=== PATIENT | male | born 1935 | race Caucasian/White ===

== ENCOUNTER 2016-07-03 15:21 | Inpatient (IN) ==
--- NOTE | 2016-07-03 16:05 | Emergency Department Note ---
Disposition Clinical Impression: Ischemia of right lower extremity, Arterial occlusion, lower extremity, Diabetes, Frail elderly, Hypertension, Peripheral vascular disease Disposition: Admitted As Inpatient Referrals: NO,PCP [Non-Partnered Physician] - Forms: ED Satisfaction Letter General Adult HPI - General Chief complaint: ED Extremity Problem,Nontraumatic Stated complaint: right leg blockage Time Seen by Provider: 07/03/16 16:05 Source: patient, family Limitations: physical limitation - History of Present Illness HPI Narrative: 80-year-old male with a history of peripheral vascular disease status post femoral bypass reports the emergency department complaining of right foot pain, he reports he gets right foot and leg pain when walking. There is no history of trauma. The family reports the patient has no pulse in his right foot or leg. The patient has contacted Dr. Cisse's office, they have recommended he come to the ED. The patient denies any leg swelling or redness. There is no history of coughing up blood or chest pain. He denies any shortness of breath. There is no history of fever. The patient takes no blood thinners at this time. There is no history of abdominal pain vomiting diarrhea or syncope. No acute back pain. No confusion or trouble moving the arms or legs independently. The arms or legs and not been cold blue or numb. The patient denies any other complaints or concerns. Onset (ago): hour(s) Pain Scale: 10 - Related Data Home Medications Medication Instructions Recorded Confirmed Enalapril Maleate [Vasotec] 20 mg PO DAILY 07/03/16 07/03/16 Metformin [Glucophage] 500 mg PO BIDWM 07/03/16 07/03/16 Metoprolol [Lopressor] 50 mg PO DAILY 07/03/16 07/03/16 NIFEdipine [Nifedical Xl] 60 mg PO BID 07/03/16 07/03/16 Simvastatin [Zocor] 20 mg PO HS 07/03/16 07/03/16 Allergies Allergy/AdvReac Type Severity Reaction Status Date / Time No Known Allergies Allergy Verified 07/03/16 15:27 All systems ED: reviewed and negative except as stated. Past Medical History - Past Medical History Medical history: Reports: diabetes, hypertension, peripheral artery disease Psychiatric history: Reports: no psych history - Social History Smoking Status: Never smoker Smokeless Tobacco Status: No Alcohol use: Reports: none Drug use: Reports: none Physical Exam - General Limitations: physical limitation General appearance: alert, in no apparent distress - Head Head exam: atraumatic, normocephalic, normal inspection - Eye Eye exam: Present: normal appearance, PERRL, EOMI - ENT ENT exam: normal exam, normal oropharynx, mucous membranes moist - Neck Neck exam: Present: normal inspection, full ROM, trachea midline - Chest Chest inspection: Present: symmetric chest wall rise. Absent: tenderness - Respiratory Respiratory exam: Present: normal lung sounds bilaterally. Absent: respiratory distress - Cardiovascular Cardiovascular exam: Present: regular rate, normal rhythm, normal heart sounds - Abdominal Exam Abdominal exam: Present: soft, Non-Tender. Absent: tenderness, distention, guarding, rebound, rigidity - Extremities Exam Extremities exam: Present: full ROM, tenderness, other (The upper extremities and the left lower extremity show bounding pulses which are easily palpable. There is 3 extremities are warm and well-perfused with no evidence of cyanosis edema or trauma. The right lower extremity appears to be somewhat pale, there are no palpable dorsalis pedis or posterior tibialis pulses noted. His trauma or calf or leg swelling.). Absent: normal inspection, normal capillary refill, pedal edema, joint swelling, calf tenderness - Expanded Lower Extremity Exam Hip/Pelvis exam: Present: full ROM. Absent: tenderness Upper leg exam: Present: full ROM. Absent: tenderness Knee exam: Present: full ROM. Absent: tenderness Lower leg exam: Present: full ROM. Absent: tenderness Ankle exam: Present: full ROM. Absent: tenderness Foot/toe exam: Present: full ROM. Absent: tenderness Neurovascular/Tendon exam: Present: pulse deficit. Absent: motor deficit, sensory deficit, tendon deficit - Back Exam Back exam: Present: normal inspection, full ROM. Absent: tenderness, CVA tenderness (R), CVA tenderness (L), vertebral tenderness - Neurological Exam Neurological exam: Present: alert, oriented X3, CN II-XII intact. Absent: motor sensory deficit - Psychiatric Psychiatric exam: Present: normal affect, normal mood - Skin Skin exam: Present: warm, dry, intact, normal color, pallor (Right foot and leg) . Absent: rash, cyanosis, diaphoresis Course Vital Signs Temperature 98.4 F 07/03/16 15:27 Pulse Rate 95 07/03/16 15:27 Respiratory Rate 15 07/03/16 15:27 Blood Pressure 190/77 07/03/16 15:27 O2 Sat by Pulse Oximetry 95 07/03/16 15:27 Temperature 98.4 F 07/03/16 15:27 Pulse Rate 68 07/03/16 17:30 Respiratory Rate 16 07/03/16 17:30 Blood Pressure 161/86 07/03/16 17:30 O2 Sat by Pulse Oximetry 97 07/03/16 17:30 Oxygen Delivery Oxygen Delivery Room Air Medical Decision Making - MDM Narrative Medical decision making narrative: The patient's MARGY was 0 on the right lower extremity, he remained pulseless, arterial studies reveal an occluded femoral-femoral graft. I consulted with the vascular surgeon Dr. Palacios who is coming to evaluate the patient. Heparin drip was initiated. CTA right lower extremity with runoff was ordered. - Lab Data Lab results reviewed: Yes I reviewed the patient's lab results. Result diagrams: 07/03/16 17:00 07/03/16 17:00 Lab Results 07/03/16 07/03/16 07/03/16 Range/Units 17:00 17:00 17:00 WBC 8.9 (4.3-11.1) K/mcL RBC 4.72 (4.19-5.50) M/mcL Hgb 14.9 (12.9-16.9) g/dL Hct 43.0 (37.5-50.1) % MCV 91.1 (83.0-100.0) fL MCH 31.6 (28.0-33.3) pg MCHC 34.7 (31.6-35.5) g/dL RDW 12.4 (11.5-14.5) % Plt Count 174 (140-400) K/mcL MPV 10.3 (9.4-12.4) fL Immature Gran % 0.2 (0-4) % Seg Neutrophils % 69.2 % Lymphocytes % 20.2 % Monocytes % 9.2 % Eosinophils % 0.6 % Basophils % 0.6 % Neutrophils # 6.2 (1.6-8.9) K/mcL Lymphocytes # 1.8 (0.6-4.6) K/mcL Monocytes # 0.8 (0.0-1.3) K/mcL Eosinophils # 0.1 (0.0-0.6) K/mcL Basophils # 0.1 (0.0-0.2) K/mcL PT (9.4-12.1) Seconds INR APTT (26.0-36.0) Seconds Sodium 140 (136-145) mEq/L Potassium 3.8 (3.5-4.5) mEq/L Chloride 110 H (98-109) mEq/L Carbon Dioxide 19 (19-29) mEq/L BUN 11 (8-26) mg/dL Creatinine 0.80 (0.72-1.25) mg/dL Est GFR ( Amer) > 60 (> 60) Est GFR (Non-Af Amer) > 60 (> 60) BUN/Creatinine Ratio 14 (6-26) Glucose 112 H (70-99) mg/dL Calculated Osmolality 290 (280-300) Lactic Acid 0.9 (0.5-2.2) mmol/L Calcium 9.5 (8.6-10.8) mg/dL Total Bilirubin 0.8 (0.2-1.2) mg/dL Direct Bilirubin 0.3 (0.0-0.5) mg/dL Indirect Bilirubin 0.5 (0.0-1.2) mg/dL AST 16 (5-34) Units/L ALT 8 (0-55) Units/L Alkaline Phosphatase 71 (38-126) Units/L Creatine Kinase 73 (30-200) Units/L Serum Total Protein 7.3 (6.0-8.3) g/dL Albumin 4.1 (3.5-5.0) g/dL Globulin 3.2 (2.4-3.5) g/dL Albumin/Globulin Ratio 1.3 (1.1-2.2) 07/03/16 Range/Units 17:00 WBC (4.3-11.1) K/mcL RBC (4.19-5.50) M/mcL Hgb (12.9-16.9) g/dL Hct (37.5-50.1) % MCV (83.0-100.0) fL MCH (28.0-33.3) pg MCHC (31.6-35.5) g/dL RDW (11.5-14.5) % Plt Count (140-400) K/mcL MPV (9.4-12.4) fL Immature Gran % (0-4) % Seg Neutrophils % % Lymphocytes % % Monocytes % % Eosinophils % % Basophils % % Neutrophils # (1.6-8.9) K/mcL Lymphocytes # (0.6-4.6) K/mcL Monocytes # (0.0-1.3) K/mcL Eosinophils # (0.0-0.6) K/mcL Basophils # (0.0-0.2) K/mcL PT 11.9 (9.4-12.1) Seconds INR 1.1 APTT 30.0 (26.0-36.0) Seconds Sodium (136-145) mEq/L Potassium (3.5-4.5) mEq/L Chloride (98-109) mEq/L Carbon Dioxide (19-29) mEq/L BUN (8-26) mg/dL Creatinine (0.72-1.25) mg/dL Est GFR ( Amer) (> 60) Est GFR (Non-Af Amer) (> 60) BUN/Creatinine Ratio (6-26) Glucose (70-99) mg/dL Calculated Osmolality (280-300) Lactic Acid (0.5-2.2) mmol/L Calcium (8.6-10.8) mg/dL Total Bilirubin (0.2-1.2) mg/dL Direct Bilirubin (0.0-0.5) mg/dL Indirect Bilirubin (0.0-1.2) mg/dL AST (5-34) Units/L ALT (0-55) Units/L Alkaline Phosphatase (38-126) Units/L Creatine Kinase (30-200) Units/L Serum Total Protein (6.0-8.3) g/dL Albumin (3.5-5.0) g/dL Globulin (2.4-3.5) g/dL Albumin/Globulin Ratio (1.1-2.2) - Radiology Data Radiology results reviewed: Yes I reviewed the patient's radiology results.
[2016-07-03 17:13] LABS: Basophils # 0.1 K/mcL (0.0-0.2); Basophils % 0.6 %; Eosinophils # 0.1 K/mcL (0.0-0.6); Eosinophils % 0.6 %; Hemoglobin 14.9 g/dL (12.9-16.9); Immature Granulocytes % 0.2 % (0-4); Lymphocytes # 1.8 K/mcL (0.6-4.6); Lymphocytes % 20.2 %; Mean Corpuscular HGB Conc 34.7 g/dL (31.6-35.5); Mean Corpuscular Hemoglobin 31.6 pg (28.0-33.3); Mean Corpuscular Volume 91.1 fL (83.0-100.0); Mean Platelet Volume 10.3 fL (9.4-12.4); Monocytes # 0.8 K/mcL (0.0-1.3); Monocytes % 9.2 %; Neutrophils # 6.2 K/mcL (1.6-8.9); Platelet Count 174 K/mcL (140-400); Red Blood Count 4.72 M/mcL (4.19-5.50); Red Cell Distribution Width 12.4 % (11.5-14.5); Segmented Neutrophils % 69.2 %
[2016-07-03 17:18] LABS: INR 1.1; Prothrombin Time 11.9 Seconds (9.4-12.1)
[2016-07-03 17:29] LABS: Alanine Aminotransferase 8 Units/L (0-55); Albumin 4.1 g/dL (3.5-5.0); Albumin/Globulin Ratio 1.3 (1.1-2.2); Alkaline Phosphatase 71 Units/L (38-126); Aspartate Amino Transferase 16 Units/L (5-34); BUN/Creatinine Ratio 14 (6-26); Bilirubin,Direct 0.3 mg/dL (0.0-0.5); Bilirubin,Indirect 0.5 mg/dL (0.0-1.2); Bilirubin,Total 0.8 mg/dL (0.2-1.2); Blood Urea Nitrogen 11 mg/dL (8-26); Calcium 9.5 mg/dL (8.6-10.8); Carbon Dioxide 19 mEq/L (19-29); Chloride 110 mEq/L (98-109); Creatine Kinase 73 Units/L (30-200); Globulin 3.2 g/dL (2.4-3.5); Glucose 112 mg/dL (70-99); Osmolality,Calculated 290 (280-300); Potassium 3.8 mEq/L (3.5-4.5); Sodium 140 mEq/L (136-145); Total Protein 7.3 g/dL (6.0-8.3); eGFR For African Americans > 60 (> 60); eGFR For Non-African Americans > 60 (> 60)
[2016-07-03] MEDS ORDERED: *HR* Heparin 5,000 UNIT/ML VIAL IVP PRN ×2 (19:41)
[2016-07-03] MEDS ORDERED: *HR* Heparin 5,000 UNIT/ML VIAL IVP ONE (19:41)
[2016-07-03] MEDS ORDERED: Heparin 25,000 UNIT/500 ML D5W 25,000 UNIT/500 ML MLS IVC SCH (19:45)
--- NOTE | 2016-07-03 22:29 | Vascular/Endovascular H&P ---
Date of Encounter: 07/03/16 Time of Encounter: 20:00 Assessment and Plan (1) Arterial occlusion, lower extremity Status: Acute The patient has along history of peripheral vascular disease. He has a history of a right iliac artery occlusion and has undergone multiple FEM-FEM bypasses over the years. Despite this, his FEM-FEM reoccluded and has remained occluded for several years. He now has worsening disabling claudication. His CTA revealed an occluded right common femoral artery. His right superficial femoral and popliteal arteries are also occluded. He has patent tibial vessels. His exam reveals intact motor function and sensation. He will be admitted and started on a heparin drip. He has been scheduled for thrombectomy with possible revision and possible right femoral to popliteal artery bypass. The risks, benefits and alternatives were discussed and all questions were answered He expressed understanding and wishes to proceed. (2) Diabetes Status: Chronic The patient was counseled regardnig atherosclerotic risk factor reduction. 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 Girard is a 80 year old male with a history of peripheral vascular disease with disabling claudication. He has undergone multiple FEM-FEM bypasses with revisions in the past. His graft has been known to be occluded for the last 3 years. He reports a 2-3 week decline in his mobility due to progressive disabling claudication. He denies rest pain, ulceartion or gangrene. Today when he tried to walk his was unable to go any signficant distance. He then came to the ER> He was found to have an MARGY of 0.0. Vascular surgery was consulted for further evaluation. He reports intact sensation and motor function. He denies chest pain or shortness of breath. Past Med Surg Social Fam HX - Past Medical History Medical history: diabetes, hypertension, peripheral artery disease Psychiatric history: no psych history - Social History Smoking Status: Never smoker Smokeless Tobacco Status: No Alcohol use: none Drug use: none - Family History Daughter Living Status: Still Living Hx Family Autoimmune Disorders: Yes (HISTORY OF MALIGNANT HYPERTHERMIA) Father Living Status: Hx Family Cardiac Disorders: Yes Mother Living Status: Hx Family Cardiac Disorders: Yes Medications and Allergies Enalapril Maleate [Vasotec] 20 mg PO DAILY 07/03/16 [History] Metformin [Glucophage] 500 mg PO BIDWM 07/03/16 [History] Metoprolol [Lopressor] 50 mg PO DAILY 07/03/16 [History] NIFEdipine [Nifedical Xl] 60 mg PO BID 07/03/16 [History] Simvastatin [Zocor] 20 mg PO HS 07/03/16 [History] OxyCODONE Immed Rel [Roxicodone 5 MG] 5 mg PO Q4H PRN #30 tablet 07/05/16 [Rx] Allergies No Known Allergies Allergy (Verified 07/03/16 15:27) All Systems Review: A 10-system review of systems was performed and is negative for pertinent findings except as documented above in the HPI. - Constitutional Constitutional: no chills, no fever(s) - Cardiovascular Cardiovascular: no chest pain at rest, no chest pain with exertion, no dyspnea at rest, no dyspnea on exertion, no palpitations - Vascular Vascular: leg pain with exertion, no lower extremity swelling - Gastrointestinal Gastrointestinal: no abdominal pain Exam Vital Signs, Last 4 Hours Temp Resp BP 07/03/16 20:43 98.4 F 18 156/81 General: Present: Conversant, No Apparent Distress HEENT: Present: Atraumatic, Normocephaly, Trachea midline, Pupils equal Neck: Absent: JVD, Lymphadenopathy, Left Carotid bruit, Right Carotid bruit Cardiac: Present: Reg Rate and Rhythm, Normal S1 and S2, No Murmur Lungs: Present: Normal Breath Sounds, No Wheeze, Rales, Rhonchi Neuro: Present: Alert and responsive, No focal deficits noted, Cranial nerves grossly intact, Motor nerves grossly intact, Sensory nerves grossly intact Abdomen: Present: Soft, Non-tender. Absent: Masses Vascular: Present: Normal capillary refill, Pulse, absent (right femoral, popliteal, dorsalis pedis and posterior tibial pulses are absent), Pulse, normal (left) Skin: Present: No rashes noted on visualized skin Results 07/05/16 04:13 07/05/16 04:13 - Imaging / Other Tests Non Invasive Vascular Testing: report reviewed, image reviewed (RABI 0.0, FEM FEM occlusion, RCFA/SFA/POP occlusion) CT/CTA: report reviewed, image reviewed (FEM-FEM is occluded. Right FIELD MARKETING ASSOCIATE, SFA and POP occlusions, tibial runoff noted)
[2016-07-03] MEDS ORDERED: D5% in Water 1,000 ML IV PRN (22:44)
[2016-07-03] MEDS ORDERED: Dextrose Gel 15 GM PO PRN ×2 (22:44)
[2016-07-03] MEDS ORDERED: Acetaminophen 325 MG TABLET PO PRN (22:44)
[2016-07-03] MEDS ORDERED: *HR* Labetalol 20 MG/4 ML SYRINGE IVP PRN (22:44)
[2016-07-03] MEDS ORDERED: *HR* Morphine 2 MG/ML SYRINGE IVP PRN (22:44)
[2016-07-03] MEDS ORDERED: *HR* Dextrose 50 % in Water (Syg) 50 ML SYRINGE IVP PRN (22:44)
[2016-07-03] MEDS ORDERED: 0.9 % Sodium Chloride 1,000 ML IVC SCH (22:45)
[2016-07-04 02:20] LABS: Basophils # 0.1 K/mcL (0.0-0.2); Eosinophils # 0.1 K/mcL (0.0-0.6); Eosinophils % 0.8 %; Immature Granulocytes % 0.4 % (0-4); Lymphocytes # 1.5 K/mcL (0.6-4.6); Lymphocytes % 18.7 %; Mean Corpuscular HGB Conc 34.1 g/dL (31.6-35.5); Mean Corpuscular Hemoglobin 31.5 pg (28.0-33.3); Mean Corpuscular Volume 92.1 fL (83.0-100.0); Mean Platelet Volume 10.3 fL (9.4-12.4); Monocytes # 0.8 K/mcL (0.0-1.3); Monocytes % 10.6 %; Neutrophils # 5.5 K/mcL (1.6-8.9); Platelet Count 175 K/mcL (140-400); Red Blood Count 4.45 M/mcL (4.19-5.50); Red Cell Distribution Width 12.6 % (11.5-14.5); Segmented Neutrophils % 68.5 %
[2016-07-04 02:33] LABS: BUN/Creatinine Ratio 13 (6-26); Blood Urea Nitrogen 10 mg/dL (8-26); Calcium 8.8 mg/dL (8.6-10.8); Carbon Dioxide 19 mEq/L (19-29); Chloride 109 mEq/L (98-109); Glucose 177 mg/dL (70-99); Osmolality,Calculated 291 (280-300); Potassium 3.7 mEq/L (3.5-4.5); Sodium 139 mEq/L (136-145); eGFR For African Americans > 60 (> 60); eGFR For Non-African Americans > 60 (> 60)
[2016-07-04] MEDS: *HR* Metoprolol 5 MG/5 ML VIAL IVP SCH ×5 (06:00→23:56)
[2016-07-04] MEDS: Insulin LISPRO 300 UNITS/3 ML VIAL SQ SCH ×3 (07:42→16:33)
[2016-07-04] MEDS ORDERED: Lisinopril 20 MG TABLET PO SCH (09:00)
[2016-07-04] MEDS ORDERED: NIFEdipine XL (24 HR) 60 MG TAB.ER.24 PO SCH (09:00)
[2016-07-04] MEDS ORDERED: Lidocaine -MPF 2% 2 ML VIAL ONE (16:55)
[2016-07-04] MEDS ORDERED: Propofol 500 MG/50 ML INFUS..BTL ONE ×2 (16:55→19:12)
[2016-07-04] MEDS ORDERED: *HR* FentaNYL (PF) 100 MCG/2 ML VIAL ONE (16:55)
[2016-07-04] MEDS ORDERED: *HR* Midazolam HCl 2 MG/2 ML VIAL ONE (16:55)
[2016-07-04] MEDS ORDERED: *HR* Propofol 200 MG/20 ML VIAL IVP ONE (16:55)
[2016-07-04] MEDS ORDERED: *HR* Remifentanil 2 MG VIAL IVP ONE (17:00)
[2016-07-04] MEDS ORDERED: Vancomycin 1,000 MG VIAL ONE (17:16)
[2016-07-04] MEDS ORDERED: Heparin 1,000 UNITS/500 mL NS 500 ML ONE (17:16)
--- NOTE | 2016-07-04 17:17 | Anesthesia Evaluation PreOp ---
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 HX Other Medical History: Diabetes Type II (oral medications only) Anesthesia History: No Prior Anesthetic Complications, Problems (Daughter with MH), MH (Daughter with MH) Alcohol Use: none Drug use: none Medications and Allergies Enalapril Maleate [Vasotec] 20 mg PO DAILY 07/03/16 [History] Metformin [Glucophage] 500 mg PO BIDWM 07/03/16 [History] Metoprolol [Lopressor] 50 mg PO DAILY 07/03/16 [History] NIFEdipine [Nifedical Xl] 60 mg PO BID 07/03/16 [History] Simvastatin [Zocor] 20 mg PO HS 07/03/16 [History] Allergies No Known Allergies Allergy (Verified 07/03/16 15:27) - Meds/Allergy Pre-op Review Medications Reviewed: Yes Allergies Reviewed: Yes Beta Blockers on Current Med List: Yes If Beta Blockers taken, Date/Time (Last Dose taken): 07-04-16 13:39 IV metoprolol Anesthesia Results - Labs 07/04/16 01:47 07/04/16 01:47 - Imaging EKG: report reviewed, image reviewed Anesthesia Exam Last Vital Signs Temp 98.2 F 07/04/16 15:47 Pulse 71 07/04/16 15:47 Resp 16 07/04/16 15:47 BP 145/73 07/04/16 15:47 Pulse Ox 95 07/04/16 15:47 Weight: 77 kg NPO (# of Hours): >> 8 hrs - HEENT Pupil (Motor): Pupils equal, EOMI Mallampati: I Teeth: Edentulous Oral Opening: Greater than 3 - SHELL PRESS OPERATOR LOC: Oriented - Cardiac Rhythm: Regular Murmur: None - Pulmonary Breath Sounds: bilateral Clear Respiratory Effort: Symmetrical Anesthesia Assess/Plan ASA Score: 3 Modified Rasta Scale for Level of Consciousness: Cooperative, oriented, and tranquil Anesthetic Plan: General Monitoring Plan: Standard Monitors, A-Line Recovery Plan: PACU
[2016-07-04] MEDS ORDERED: EPHEDrine 50 MG/ML VIAL ONE (17:42)
[2016-07-04] MEDS ORDERED: *HR* Heparin 5,000 UNIT/ML VIAL ONE (19:22)
[2016-07-04] MEDS ORDERED: Ondansetron 4 MG/2 ML VIAL ONE (20:37)
[2016-07-04] MEDS ORDERED: Dexamethasone 4 MG/ML VIAL ONE (20:37)
--- NOTE | 2016-07-04 20:58 | Operative Note ---
Date of procedure: 07/04/16 Pre-op diagnosis: Acute on Chronic limb ischemia secondary to peripheral vascular disease. Post-op diagnosis: same Procedure: 1. Left to Right femoral to femoral artery bypass with 6mm PTFE graft. 2. Right lower extremity thrombectomy with 4 kyrgyz zaria embolectomy catheter. Complications: None Anesthesia: DEYANIRA Surgeon: Mat Palacios Commercial Real Estate Sales Manager: Daniel Sandoval Estimated blood loss (cc): 250 Specimen: RIght lower extremity thrombus Condition: stable Disposition: PACU Procedure in Detail: Indications: The patient is an 80 year old male with multiple medical comorbidities and a history of peripheral vascular disease with disabling claudication. He underwent a FEM-FEM bypass several years ago and his graft has been known to be occluded for several years. He presented to the emergency room with disabling claudication to the point where he could not walk more than a few feet. He underwent vascular labs and he was noted to have no significant flow in the right lower extremity with an MARGY of 0.0. Vascular surgery was consulted and revascularization was recommended to prevent limb loss. Procedure: The patient was identified in the preoperative area. The risks, benefits, and alternatives of the procedure were discussed. All questions were answered. The patient was taken to the operating room and placed in supine position on the operating room table. After the induction of general endotracheal anesthesia, he was cleaned and draped in normal sterile fashion. An oblique incision was made over the right groin sharply. The incision was separate and distinct from his prior scar. Hemostasis was obtained with electrocautery. Through a process of blunt, sharp, and electrocautery dissection, the right femoral vessels were dissected circumferentially and surrounded with vessel loops. The graft limb was also dissected circumferentially and surrounded with vessel loops. An oblique incision was then made over the left groin sharply. Hemostasis was obtained with electrocautery. Through a process of blunt, sharp, and electrocautery dissection, the left femoral vessels and graft were dissected circumferentially and surrounded with vessel loops. The patient received 5000 units of heparin intravenously. A longitudinal graftotomy was made at the right groin anastamosis. A large thrombus was removed. Using a 4 kyrgyz zaira embolectomy catheter, thromboembolectomy was performed proximally into the right common iliac artery and significant flow was noted after the removal of acute and subacute thrombus. A thrombectomy was then performed distally. A large amount of thrombus was retrieved. After several negative passes, retrograde flow as noted. Additional thrombectomy was then performed on the deep femoral artery. Thrombus was removed and retrograde flow was noted. Heparinzed saline was infused into the vessels and they were occluded. A graft was tunneled between the right and left femoral incisions. The prior graft was transected from the bilateral femoral vessels. The graft was sutured in place with a running 6-0 Prolene to the left common femoral artery. The left femoral vessels were flushed through the graft. Heparinized saline was infused into the graft lumen. The graft was clamped with an atraumatic clamp. Flow was restored in the left femoral vessels. Redundant graft material was excised from the right common femoral artery. The graft was anastamosed to the right common femoral artery with a running 5-0 Prolene. Prior to completing the anastamosis, the right femoral vessels were flushed through the graft anastamosis and heparin was infused into the lumen. The anastamosis was completed and flow was restored in the right lower extremity. Thrombin and gelfoam were used to aid in hemostasis. Polyphasic signals were noted distal to the anastamoses. The wounds were irrigated with antibiotic-containing saline. Platelet rich and platelet poor plasma were infused into the wounds. Meticulous hemostasis was obtained throughout the wound with electrocautery. Wounds were reapproximated with layers of 2-0 and 3-0 Vicryl. Skin was reapproximated with 3-0 Monocryl. Sterile dressing was applied. The patient was extubated and taken to recovery room in stable condition.
[2016-07-04] MEDS ORDERED: Insulin LISPRO 300 UNITS/3 ML VIAL SQ SCH (21:00)
[2016-07-04] MEDS ORDERED: *HR* HYDROmorphone (PF) 1 MG/ML SYRINGE IVP PRN (21:10)
[2016-07-04] MEDS: *HR* HYDROmorphone (PF) 1 MG/ML SYRINGE ONE ×2 (21:15→22:06)
--- NOTE | 2016-07-04 21:15 | Operative Note ---
Date of procedure: 07/04/16 Pre-op diagnosis: Disabling claudication Post-op diagnosis: same Procedure: #1 redo left to right femoral-femoral bypass graft with 6 mm PTFE #2 Nagi catheter thrombectomy of right femoral popliteal system Complications: None Anesthesia: GETA Surgeon: Mat Palacios Co-Surgeon: Daniel Sandoval Estimated blood loss (cc): 250 Specimen: Right lower extremity thrombus Condition: stable Disposition: PACU Procedure in Detail: History Td Girard is an 80-year-old white male was admitted yesterday for severe right lower extremity symptoms. This gentleman has a very long history of peripheral vascular occlusive disease. He has undergone multiple interventions including femoral-femoral bypass grafts. The patient now presents with at least a 2 week history of worsening right lower extremity exercise tolerance and pain. In the emergency room he was found to have an ankle-brachial index of 0. Because of the severe ischemia and he was recommended to undergo urgent revascularization. He also has a history of diabetes and hypertension. Procedure After informed consent was obtained the patient was taken to the operating room. General endotracheal anesthesia was established. The right lower extremity abdomen and left groin and upper thigh were then sterilely prepped and draped. A 2 team surgical protocol was utilized for this procedure. This was done because of the patient's comorbid conditions including advanced age and diabetes and recurrent vascular occlusive disease. This would allow for increased complex intraoperative decision-making and to minimize blood loss as well as decreased anesthetic time. A timeout protocol was observed. Incisions were then made in the groins bilaterally using the old surgical incisions. Dissection was carried down simultaneously to expose the common femoral artery and its bifurcation as well as the thrombosed femoral-femoral bypass graft. The patient had a significant amount of adhesions as expected because of his multiple previous operations. Once the vasculature was secured a deep subcutaneous tunnel was then created. A 6 mm PTFE graft was selected and this was passed through the tunnel. 4000 units of heparin were then administered intravenously. After an appropriate delay the original graft was then amputated off of the nulato vessels. On the left side a small rim all the original graft was left attached to the left common femoral artery to allow for an area of anastomosis. The left side had a strong palpable pulse and was the donor limb. On the right side the patient had a formal thrombectomy performed. A 4 Moldovan Nagi catheter was inserted antegrade into the common femoral superficial femoral and profunda systems. This allowed retrieval of significant clot and moravian of back flow. Clot was also removed from the distal aspect of the right external iliac artery. With this done the redo femoral-femoral bypass graft was performed. As noted above this was a 6 mm PTFE that was sewn in position using 6-0 Prolene suture. After appropriate backbleeding and flushing the graft was open. Hemostasis was achieved at the anastomotic sites. Doppler signals were then documented at the right posterior tibial and anterior tibial artery at the ankle. The wounds were then closed after irrigation with antibiotic containing solution. Dry sterile dressings were applied. The patient was taken from the operating room to the recovery room in stable condition.
[2016-07-04] MEDS ORDERED: *HR* Promethazine 25 MG/ML VIAL IVP PRN ×2 (21:48→22:29)
[2016-07-04] MEDS ORDERED: *HR* Labetalol 20 MG/4 ML SYRINGE IVP PRN (22:29)
[2016-07-04] MEDS ORDERED: Acetaminophen 325 MG TABLET PO PRN (22:29)
[2016-07-04] MEDS ORDERED: *HR* HYDROcodone/Acet 5/325 mg TABLET PO PRN (22:29)
[2016-07-04] MEDS ORDERED: D5% in Water 1,000 ML IV PRN (22:29)
[2016-07-04] MEDS ORDERED: *HR* Dextrose 50 % in Water (Syg) 50 ML SYRINGE IVP PRN (22:29)
[2016-07-04] MEDS ORDERED: Ondansetron 4 MG/2 ML VIAL IVP PRN (22:29)
[2016-07-04] MEDS ORDERED: 0.9 % Sodium Chloride 1,000 ML IVC SCH (22:29)
[2016-07-04] MEDS ORDERED: *HR* Morphine 2 MG/ML SYRINGE IVP PRN (22:29)
[2016-07-04] MEDS ORDERED: Dextrose Gel 15 GM PO PRN ×2 (22:29)
[2016-07-04] MEDS ORDERED: Naloxone 0.4 MG/ML INJ IVP PRN (22:29)
[2016-07-04] MEDS ORDERED: *HR* OxyCODONE Immed Rel 5 MG TABLET PO PRN (22:29)
--- NOTE | 2016-07-04 22:29 | Anesthesia Evaluation Post Op ---
Date of Encounter: 07/04/16 Time of Encounter: 22:28 - Vital Signs Vital Signs: Vital Signs/O2 Sat/Glucose, Most Current Temp Pulse Resp BP Pulse Ox 07/04/16 22:13 81 16 95 07/04/16 22:03 97.2 F L 79 16 136/88 96 07/04/16 21:53 78 16 154/80 96 07/04/16 21:43 72 16 136/75 93 L 07/04/16 21:33 97.2 F L 80 16 134/83 94 L 07/04/16 21:23 84 16 128/67 93 L 07/04/16 21:13 85 16 129/65 96 07/04/16 21:03 97.4 F L 94 16 174/82 98 - Lungs Lungs: Clear Ascult./Percussion - Airway Airway: Non-obstructed - Cardiovascular Regular Rate - Mental Status Mental Status: Alert & Oriented, Answers Appropriately - Pain Pain Scale: 2 - Nausea Vomiting Nausea Vomiting: Not Present - Hydration Hydration: Ice chips - Discharge PostOp Status: Transfer Patient to floor
[2016-07-04] MEDS ORDERED: Vancomycin 1,250 MG in D5% in Water 250 ML IVPB ONE (23:00)
[2016-07-05] MEDS ORDERED: Vancomycin 0 MG in D5% in Water 250 ML IVPB ONE (03:00)
[2016-07-05 04:41] LABS: Basophils % 0.2 %; Hematocrit 35.8 % (37.5-50.1); Immature Granulocytes % 0.5 % (0-4); Lymphocytes # 0.7 K/mcL (0.6-4.6); Lymphocytes % 5.6 %; Mean Corpuscular HGB Conc 33.8 g/dL (31.6-35.5); Mean Corpuscular Hemoglobin 31.1 pg (28.0-33.3); Mean Platelet Volume 10.4 fL (9.4-12.4); Monocytes # 0.9 K/mcL (0.0-1.3); Monocytes % 7.2 %; Neutrophils # 10.6 K/mcL (1.6-8.9); Platelet Count 159 K/mcL (140-400); Red Blood Count 3.89 M/mcL (4.19-5.50); Red Cell Distribution Width 12.8 % (11.5-14.5); Segmented Neutrophils % 86.5 %
[2016-07-05 04:58] LABS: BUN/Creatinine Ratio 14 (6-26); Blood Urea Nitrogen 10 mg/dL (8-26); Calcium 8.2 mg/dL (8.6-10.8); Carbon Dioxide 17 mEq/L (19-29); Chloride 112 mEq/L (98-109); Glucose 162 mg/dL (70-99); Osmolality,Calculated 291 (280-300); Potassium 3.9 mEq/L (3.5-4.5); Sodium 139 mEq/L (136-145); eGFR For African Americans > 60 (> 60); eGFR For Non-African Americans > 60 (> 60)
[2016-07-05 05:05] LABS: Hemoglobin 12.1 g/dL (12.9-16.9)
[2016-07-05] MEDS: *HR* Metoprolol 5 MG/5 ML VIAL IVP SCH (05:46)
[2016-07-05] MEDS ORDERED: *HR* Heparin 5,000 UNIT/ML VIAL SQ SCH (06:00)
[2016-07-05] MEDS ORDERED: Vancomycin 1,250 MG in D5% in Water 250 ML IVPB ONE (07:00)
[2016-07-05 07:06] VITALS: BP 123/64
--- NOTE | 2016-07-05 07:09 | Arterial Study Report ---
LE Arterial Physiologic Study Patient Name:Td Girard Order Number:[id number] Procedure Date:07/03/2016 Date:1935ge:80 yrs Gender:Male Lt BP:190 / mmHg Rt.BP:203 / mmHgHeart Rate: Location:[facility] ED Room #: ED11 [employer] Worker:Deanna Jimenez Referring MD:Tom Barraza MD software licensing analyst:Billie Colmenares, NAIL SPECIALIST Reading MD:Mat Palacios MD Primary Indications:No pulses right leg Risk Factors Yes/No Smoker Previous Hypertension Hypercholesterolemia Diabetes Previous Vascular Surgery Impressions: The right MARGY is critical. Right MARGY: 0.0. The left MARGY and waveforms are normal. Left MARGY: 1.15. Recommendations: Further evaluation recommended. After imaging the patient returned to their room. Test completed on 07/03/2016 at 6:30:00 pm. Critical findings reported to -ED- and by phone at 7:00:00 pm on 07/03/2016 by Deanna Jimenez. Findings LE Arterial Physiologic Exam: PVR: Right: The PVR waveforms are absent in the right ankle. Left: The PVR waveforms are normal in the left ankle. Segmental Pressures Side Location Pressure Index Result Right Posterior Tibial 0 Severely Diminished Right Dorsalis Pedis 0 Severely Diminished Left Posterior Tibial 234 1.15 noncompressible Left Dorsalis Pedis 199 0.98 Normal Ankle Brachial Index Right Systolic Diastolic MARGY Brachial 203 Left Systolic Diastolic MARGY Brachial 190 1.15 Dorsalis Pedis 199 0.98 Posterior Tibial 234 1.15 Updated by Mat Palacios MD on 07/05/2016 7:03:18 AM with Status of Final electronically signed on 07/05/2016 7:03:28 AM with status of Final
--- NOTE | 2016-07-05 07:24 | Arterial Study Report ---
LE Arterial Duplex Patient Name:Td Girard Order Number:[id number] Procedure Date:07/03/2016 Date:1935ge:80 yrs Gender:Male Location:[facility] ED Room #: ED11 Insurance Verification Specialist:Deanna Jimenez Referring MD:Tom Barraza MD senior attorney:Billie Colmenares, SHAFT REPAIRER Reading MD:Mat Palacios MD Primary Indications:No pulse in right LE Risk Factors Yes/No Hypertension Hypercholesterolemia Diabetes Smoker Previous Previous Vascular Surgery Impressions: The femoral to femoral artery bypass graft is occluded. Recommendations: Further evaluation is recommended. Test completed on 07/03/2016 at 6:55:00 pm. Critical findings reported to -ED and by phone at 7:00:00 pm on 07/03/2016 by Deanna Jimenez. Findings Bypass Grafts: The right common femoral artery to left common femoral artery PTFE bypass graft is occluded. The left inflow vessel is occluded with a PSV of 203 cm/s. The left proximal anastomosis is occluded with a PSV of 85 cm/s. The left proximal graft body is occluded. The left mid graft body is occluded. The right distal graft body is occluded. The right distal anastomosis is occluded. The right outflow vessel has a PSV of 64 cm/s. Arterial Duplex Results: Right: The PSV in the right distal external iliac artery is 203 cm/s. The PSV in the right common femoral artery is 85 cm/s. The PSV in the right proximal superficial femoral artery is 64 cm/s. Updated by Mat Palacios MD on 07/05/2016 7:18:31 AM electronically signed on 07/05/2016 7:18:52 AM with status of Final
[2016-07-05] MEDS ORDERED: Insulin LISPRO 300 UNITS/3 ML VIAL SQ SCH ×2 (07:30→21:00)
--- NOTE | 2016-07-05 07:30 | Discharge Summary ---
Date of Encounter: 07/05/16 Time of Encounter: 07:30 - Discharge Diagnosis (1) Arterial occlusion, lower extremity Priority: Primary Status: Acute Comments: The patient is postoperative day #1 after a FEM-FEM bypass and aright lower extremity thrombectomy. His foot is warm. He has polyphasic signals and his compartments are soft. He has no hematoma. He is neurologically intact. He will be discharged today. 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 He is hemodynamically stable without evidence of ongoing blood loss. Qualifiers: Anemia type: other cause Other causes of anemia: acute posthemorrhagic Qualified Code(s): D62 - Acute posthemorrhagic anemia - Discharge Medications Prescriptions: OxyCODONE Immed Rel [Roxicodone 5 MG] 5 mg PO Q4H PRN #30 tablet PRN Reason: POSTOPERATIVE PAIN Home Medications: Enalapril Maleate [Vasotec] 20 mg PO DAILY 07/03/16 [History] Metformin [Glucophage] 500 mg PO BIDWM 07/03/16 [History] Metoprolol [Lopressor] 50 mg PO DAILY 07/03/16 [History] NIFEdipine [Nifedical Xl] 60 mg PO BID 07/03/16 [History] Simvastatin [Zocor] 20 mg PO HS 07/03/16 [History] OxyCODONE Immed Rel [Roxicodone 5 MG] 5 mg PO Q4H PRN #30 tablet 07/05/16 [Rx] Allergies/Adverse Reactions: Allergies No Known Allergies Allergy (Verified 07/03/16 15:27) Date of admission: 07/03/16 20:11 Primary care physician: Billie Colmenares Procedure(s) Performed: FEM FEM Bypass, right lower extremity thrombectomy. Discharging clinician: Mat Palacios Anticipated date of discharge: 07/05/16 - Patient Status Disposition: Home, Self-Care Condition: Good Functional capacity at discharge: independent ambulation Overall status at discharge: patient is progressing back to baseline - Discharge Instructions Instructions: Oxycodone, Rapid Release (By mouth), Femoropopliteal Bypass (DC) , Peripheral Vascular Disorders (DC) Follow Up With: Billie Colmenares CNP [Primary Care Provider] - 07/11/16 9:15 am Mat Palacios MD [Partnered Physician] - 08/09/16 1:00 pm Additional Instructions: May remove bandages and shower on 07/06/16. Wash wounds gently and pat to dry. Apply dry gauze to wounds daily for 7 days. No tub baths or swimming until 07/26/16. Call [phone] with questions or concerns. - Diet and Activity Activity: increase activity as tolerated Diet: diabetic diet - Hospital Course Hospital course: Mr. Girard is a 80 year old male with a history of peripheral vascular disease. He was admitted on 07/03/16 with acute limb ischemia. He was admitted and started on anticoagulation. On 07/04/16 he underwent a femoral to femoral bypass and a right lower extremity thrombectomy. He tolerated the procedure well and was discharged on 07/05/16 without complications. - Time Spent with Patient Total time spent providing and/or coordinating discharge services: Exam Vital Signs, Last 4 Hours Temp Pulse Resp BP Pulse Ox 07/05/16 07:00 97.8 F 73 16 123/64 97 07/05/16 06:00 59 16 126/56 93 L 07/05/16 05:00 64 16 119/75 96 07/05/16 04:00 71 16 118/81 95 General: Present: Conversant, No Apparent Distress HEENT: Present: Pupils equal Cardiac: Present: Reg Rate and Rhythm Lungs: Present: Normal Breath Sounds Neuro: Present: Alert and responsive, No focal deficits noted Abdomen: Present: Soft Vascular: Present: Normal capillary refill, Surgical incisions (No hematoma, clean, dry and intact), Other (pedal signals present bilaterally). Absent: Cyanosis, Edema Skin: Present: No rashes noted on visualized skin - VTE Documentation of Mechanical Device: Intermittent pneumatic compression device
[2016-07-05] MEDS ORDERED: Lisinopril 20 MG TABLET PO SCH (09:00)
[2016-07-05] MEDS ORDERED: NIFEdipine XL (24 HR) 60 MG TAB.ER.24 PO SCH (09:00)
[2016-07-05] MEDS ORDERED: ceFAZolin 2,000 MG in D5% in Water 100 ML IVPB SCH (23:30)
== END 2016-07-05 10:49 | disposition home or self-care (01) | DRG 271 ==
LOC: EMEROO 15:21 → 2NNU 20:11
PROVIDERS: ADMIT Surgery; ATTEND Surgery